=== PATIENT | female | born 1950 | race Caucasian/White ===

== ENCOUNTER → 2016-12-18 | Outpatient (CLI) | payer MEDICARE, OTHER | LOC: EMI 08:58 | DX: M54.16 Radiculopathy, lumbar region (principal); M96.1 Postlaminectomy syndrome, not elsewhere classified; M51.37 Other intervertebral disc degeneration, lumbosacral region; M47.814 Spondylosis without myelopathy or radiculopathy, thoracic region; Z98.890 Other specified postprocedural states | CPT/HCPCS: 72157; 72158; A9577; J7050 ==

== ENCOUNTER 2020-11-06 16:54 | Emergency (ER) | payer MEDICARE, OTHER ==
[~2020-11-06 16:54] MED LIST: BACTRIM DS TAB1 EACH PO
== END 2020-11-06 18:00 | disposition left against medical advice (07) ==
LOC: ER1 16:54
DX: R07.9 Chest pain, unspecified (principal); R06.02 Shortness of breath; R53.1 Weakness; Z53.21 Procedure and treatment not carried out due to patient leaving prior to being seen by health care provider
CPT/HCPCS: 93005